=== PATIENT | female | born 1945 | race Caucasian/White ===

== ENCOUNTER 2018-07-25 09:56 | Day surgery (SDC) | payer OTHER ==
[2018-07-24 09:22] VITALS: BMI 21.9
[~2018-07-25 09:56] MED LIST: CYCLOPENTOLATE HCL 1% OPHTH SOLN 2 ML BOTTLE OD SCH; GENTAMICIN SULFATE 0.3% OPHTHALMIC (EYE DROPS) 5ML BOTTLE OD SCH; KETOROLAC TROMETHAMINE 0.5% EYE DROP 1 DROP DROPS OD SCH; PHENYLEPHRINE 2.5% OPHTH SOLN 15 ML BOTTLE OD SCH; TROPICAMIDE 1% OPHTH SOLN 15 ML BOTTLE OD SCH
[2018-07-25] MEDS ORDERED: PHENYLEPHRINE 2.5% OPHTH SOLN 15 ML BOTTLE ONE (10:19)
[2018-07-25] MEDS ORDERED: CYCLOPENTOLATE HCL 1% OPHTH SOLN 2 ML BOTTLE ONE (10:19)
[2018-07-25] MEDS ORDERED: GENTAMICIN SULFATE 0.3% OPHTHALMIC (EYE DROPS) 5ML BOTTLE ONE (10:19)
[2018-07-25] MEDS ORDERED: KETOROLAC TROMETHAMINE 0.5% EYE DROP 1 DROP DROPS ONE (10:19)
[2018-07-25] MEDS ORDERED: TROPICAMIDE 1% OPHTH SOLN 15 ML BOTTLE ONE (10:19)
[2018-07-25] MEDS: KETOROLAC TROMETHAMINE 0.5% EYE DROP 1 DROP DROPS OD SCH ×5 (10:30→10:50)
[2018-07-25] MEDS: TROPICAMIDE 1% OPHTH SOLN 15 ML BOTTLE OD SCH ×5 (10:30→10:50)
[2018-07-25] MEDS: CYCLOPENTOLATE HCL 1% OPHTH SOLN 2 ML BOTTLE OD SCH ×5 (10:30→10:50)
[2018-07-25] MEDS: GENTAMICIN SULFATE 0.3% OPHTHALMIC (EYE DROPS) 5ML BOTTLE OD SCH ×5 (10:30→10:50)
[2018-07-25] MEDS: PHENYLEPHRINE 2.5% OPHTH SOLN 15 ML BOTTLE OD SCH ×5 (10:30→10:50)
[2018-07-25] MEDS ORDERED: GENTAMICIN SULFATE 0.3% OPHTHALMIC (EYE DROPS) 5ML BOTTLE OD SCH (11:30)
[2018-07-25] MEDS ORDERED: POVIDONE-IODINE 5% OPHTHALMIC PREP 30 ML SOLUTION ONE (12:46)
[2018-07-25] MEDS ORDERED: ACETYLCHOLINE 1:100 INTRA-OCUL 20 MG/2 ML KIT ONE (12:46)
[2018-07-25] MEDS ORDERED: BSS (NA/CA/MG/K) BALANCED SALT SOLUTION OPHTH SOLN 15 ML BOTTLE ONE (12:46)
[2018-07-25] MEDS ORDERED: EPI-SHUGARCAINE (EPINEPHRINE 0.025% & LIDOCAINE-PF 0.75%) 4ML ONE ×2 (12:46→13:01)
[2018-07-25] MEDS ORDERED: MIDAZOLAM HCL 2 MG/2 ML SINGLE DOSE VIAL ONE (12:55)
[2018-07-25] MEDS ORDERED: ACETAMINOPHEN 325 MG TABLET (FP) PO PRN (14:06)
[2018-07-25 14:27] VITALS: TEMP 98.7
[2018-07-25 14:55] VITALS: BP 121/76; PULSE 73
--- NOTE | 2018-07-25 15:04 | OP ---
DATE OF OPERATION: 07/25/2018 AGE: [age] years old. SEX: Female. PREOPERATIVE DIAGNOSIS: Cataract, right eye. POSTOPERATIVE DIAGNOSIS: Cataract, right eye. PROCEDURE: Cataract extraction via phacoemulsification with insertion of posterior chamber lens implant, right eye. SURGEON: Doug Lund MD ART TEACHER: Jennifer Elise MD ANESTHESIA: Topical with sedation. ESTIMATED BLOOD LOSS: Less than 1 mL. COMPLICATIONS: None. SPECIMENS: None. DESCRIPTION OF PROCEDURE: The patient was identified in the holding area. After all risks, benefits, and alternatives were explained to the patient, informed consent was obtained. The right eye was marked with a marking pen. The patient then entered the operating room on an eye stretcher. After a formal timeout was performed, topical tetracaine eye drops were instilled onto the right eye. The right eye was then prepped and draped in the usual sterile fashion. An eyelid speculum was placed beneath the eyelids of the right eye. A superotemporal paracentesis incision was created using a 15-degree blade. Topical preservative-free epinephrine and preservative-free lidocaine were then injected into the anterior chamber. Viscoelastic was then injected into the anterior chamber. A 2.4-mm keratome blade was then used to make an inferotemporal incision. A 360-degree, continuous curvilinear capsulorrhexis was then created using bent cystotome and Utrata forceps. Hydrodissection was performed using balanced saline solution on a cannula. Phacoemulsification was introduced to disassemble and remove the nucleus in its entirety. Irrigation/aspiration was then used to remove any remaining cortical material from the eye. The capsular bag was reformed using viscoelastic. An Ronni model [id number] with a power of 17.5 diopters, serial number [id number] was inspected and found to be defect free and injected into the capsular bag. Irrigation/aspiration was then used to remove any remaining viscoelastic from the eye. The anterior chamber was reformed using balanced saline solution. Intracameral injections of Miochol and Miostat were then administered, and the pupil came down and was round. All wounds were hydrated with balanced saline solution and noted to be watertight. The anterior chamber was deep. The eye had an adequate pressure. The lens was perfectly centered in the capsular bag, and there was a red reflex present. Topical antibiotic eye drops and ointment were then administered to the right eye. The eyelid speculum was removed from the right eye. The right eye was shielded. The patient tolerated the procedure well, left the operating room in stable condition to follow up in the eye clinic tomorrow morning at 9:00. DOUG LUND M.D. [id number]
== END 2018-07-25 14:58 | disposition home or self-care (01) ==
LOC: FASU 09:56
PROVIDERS: ATTEND Ophthalmology
PROC: 08RJ3JZ Replacement of Right Lens with Synthetic Substitute, Percutaneous Approach (ICD-10-PCS; principal; 2018-07-25 13:35)
DX: H26.9 Unspecified cataract (principal)

== ENCOUNTER 2020-08-05 10:16 | Day surgery (SDC) | payer OTHER ==
--- OUTSIDE RECORDS SUMMARY | 2020-07-21 13:22 | XMS ---
:1945 Author Organization [facility] Care Team Providers Name Role Phone ROSS MCKEON Unavailable Unavailable KADY PACE MD Unavailable Unavailable Re-disclosure Warning The records that you are about to access may contain information from federally- assisted alcohol or drug abuse programs. If such information is present, then the following federally mandated warning applies: This information has been disclosed to you from records protected by federal confidentiality rules (42 CFR part 2). The federal rules prohibit you from making any further disclosure of this information unless further disclosure is expressly permitted by the written consent of the person to whom it pertains or as otherwise permitted by 42 CFR part 2. A general authorization for the release of medical or other information is NOT sufficient for this purpose. The Federal rules restrict any use of the information to criminally investigate or prosecute any alcohol or drug abuse patient.The records that you are about to access may contain highly sensitive health information, the redisclosure of which is protected by Article 27-F of the [facility] Public Health law. If you continue you may haveaccess to information: Regarding HIV / AIDS; Provided by facilities licensed or operated by the [facility] Office of Mental Health; or Provided by the [facility] Office for People With Developmental Disabilities. If such information is present, then the following [facility] mandated warning applies: This information has been disclosed to you from confidential records which are protected by state law. State law prohibits you from making any further disclosure of this information without the specific written consent of the person to whom it pertains, or as otherwise permitted by law. Any unauthorized further disclosure in violation of state law may result in a fine or mcfp sentence or both. A general authorization for the release of medical or other information is NOT sufficient authorization for further disclosure. Allergies and Adverse Reactions Type Description Substance Reaction Status Data Source(s ) seasonal seasonal seasonal Unknown Active eCW2 ([facility]) seasonal seasonal seasonal Unknown Active eCW2 ([facility]) seasonal seasonal seasonal Unknown Active eCW2 ([facility]) Drug allergy No Known Drug No Known Drug [facility] seasonal seasonal seasonal Unknown Active eCW2 ([facility]) seasonal seasonal seasonal Unknown Active eCW2 ([facility]) seasonal seasonal seasonal Unknown Active eCW2 ([facility]) seasonal seasonal seasonal Unknown Active eCW2 ([facility]) seasonal seasonal seasonal Unknown Active eCW2 ([facility]) seasonal seasonal seasonal Unknown Active eCW2 ([facility]) seasonal seasonal seasonal Unknown Active eCW2 ([facility]) seasonal seasonal seasonal Unknown Active eCW2 ([facility]) seasonal seasonal seasonal Unknown Active eCW2 ([facility]) seasonal seasonal seasonal Unknown Active eCW2 ([facility]) No Information No Information No Information eC W2 ([facility]) No Information No Information No Information eC W2 ([facility]) No Information No Information No Allergy eCW2 ( Open [facility]) Encounters Encounter Providers Location Date Indications Data Source(s ) [place]2 (Op en Door Door Door 0 [facility] 12:00:00 [place]) AM EDT [place] Open eCW2 (Op en Door Open Door Door 0 [facility] 12:00:00 [place] AM EST [place] Open eCW2 (Op en Door Open Door Door 9 [facility] 12:00:00 [place] AM ED[place] Open eCW2 (Op en Door Open Door Door 9 [facility] 12:00:00 [place]) AM EDT [place] Open eCW2 (Op en Door Open Door Door [address] [place] [address] 12:00:00 [place]) AM EDT [place] Open eCW2 (Op en Door [facility] 12:00:[facility] [place] AM ED[place] Open eCW2 (Op en Door Open [facility] 12:00:00 [place]) AM EDT [place] Open eCW2 (Op en Door Open Door [facility] 12:00:00 [place]) AM EDT [place] Open eCW2 (Op en Door Open [facility] 12:00:00 [place]) AM EDT [place] Open eCW2 (Op en Door Open Door [facility] 12:00:00 [place]) AM EDT [place] Open eCW2 (Op en Door Open Door [facility] 12:00:00 [place]) AM EDT [place] Open eCW2 (Op en Door Open Door [facility] 12:00:00 [place]) AM EDT [place] Open eCW2 (Op en Door Open Door [facility] 12:00:00 [place]) AM EDT [place] Open eCW2 (Op en Door Open Door [facility] 12:00:00 [place]) AM EDT [place] Open eCW2 (Op en Door Open [facility] 12:00:00 [place]) AM EDT [place] Open eCW2 (Op en Door Open Door [facility] 12:00:00 [place]) AM EDT Outpatient Attender: LEFT EYE VISION [facility] er MIKE, 9 [facility] RAMANDEEPAttend 07:30:00 Care Mauro oration er: KADY PACE PM EST MDAdmitter: KADY PACE MD LEFT EYE VISION FOG Emergency Attender: KATELYNN 12/22/2018 02:53:00 LEFT EYE [facility] KADY SHAW PM EST [facility] LEFT EYE VISION FOG [place] Open Door 12/15/2018 12:00:00 AM eCW2 (Open Door Door [facility]) [place] Open Door 12/01/2018 12:00:00 AM eCW2 (Open Door Door [facility]) [place] Open Door 11/10/2018 12:00:00 AM eCW2 (Open Door Door [facility]) [place] Open Door 11/03/2018 12:00:00 AM eCW2 (Open Door Door [facility]) [place] Open Door 10/27/2018 12:00:00 AM eCW2 (Open Door Door [facility]) [place] Open Door 10/06/2018 12:00:00 AM eCW2 (Open Door Door [facility]) [place] Open Door 09/22/2018 12:00:00 AM eCW2 (Open Door Door [facility]) [place] [facility] 06/01/2018 12:00:00 AM eCW2 (Open Door [facility]) [place] Open Door 03/14/2018 12:00:00 AM eCW2 (Open Door Door [facility]) [place] Open Door 02/16/2018 12:00:00 AM eCW2 (Open Door Door [facility]) [place] [facility] [place] 02/06/2018 12:00:00 AM eCW2 (Open Door [facility]) [place] [facility] [place] 01/24/2018 12:00:00 AM eCW2 (Open Door [facility]) [place] [facility] [place] 06/21/2017 12:00:00 AM eCW2 (Open Door [facility]) [place] [facility] 12/07/2016 12:00:00 AM eCW2 (Open Door [facility]) [place] [facility] 11/03/2016 12:00:00 AM eCW2 (Open Door [facility]) [place] [facility] 04/19/2016 12:00:00 AM eCW2 (Open Door [facility]) [place] Open Door 06/03/2015 12:00:00 AM eCW2 (Open Door Door [facility]) [place] Open Door 10/16/2014 12:00:00 AM eCW2 (Open Door [facility]) [place] [facility] 09/03/2014 12:00:00 AM eCW2 (Open Door [facility]) [place] [facility] 08/19/2014 12:00:00 AM eCW2 (Open Door [facility]) [place] Open [place] Open [facility] 08/01/2014 12:00:00 AM eCW2 (Open Door [facility]) [place] Open [facility] 08/01/2014 12:00:00 AM eCW2 (Open Door [facility]) [place] [facility] 06/08/2014 12:00:00 AM eCW2 (Open Door [facility]) [place] Open Door 05/29/2014 12:00:00 A M eCW2 (Open Door Door [facility]) [place] Open [facility] 04/24/2014 12:00:00 AM eCW2 (Open Door [facility]) [place] Open [facility] 03/29/2014 12:00:00 AM eCW2 (Open Door [facility]) [place] [facility] 03/01/2014 12:00:00 AM eCW2 (Open Door [facility]) [place] Open [place] [facility] 02/08/2014 12:00:00 AM eCW2 (Open Door [facility]) [place] Open [place] [facility] 01/19/2014 12:00:00 AM eCW2 (Open Door [facility]) Immunizations Vaccine Date Status Description Data Source(s) No Known Immunizations completed eCW2 ([facility]) No Known Immunizations completed eCW2 ([facility]) No Known Immunizations completed eCW2 ([facility]) No Known Immunizations completed eCW2 ([facility]) No Known Immunizations completed eCW2 ([facility]) No Known Immunizations completed eCW2 ([facility]) No Known Immunizations completed eCW2 ([facility]) No Known Immunizations completed eCW2 ([facility]) No Known Immunizations completed eCW2 (Open Door [facility]) No Known Immunizations completed eCW2 (Open Door [facility]) No Known Immunizations completed eCW2 (Open Door [facility]) No Known Immunizations completed eCW2 (Open Door [facility]) No Known Immunizations completed eCW2 (Open Door [facility]) No Known Immunizations completed eCW2 (Open Door [facility]) No Known Immunizations completed eCW2 (Open Door [facility]) No Known Immunizations completed eCW2 (Open Door [facility]) Medications Medication Brand Start Product Dose Route Administrative Pharmacy [facility] Indications Reaction Description Data Name Date Form Instructions Instructions Source(s) B Complex UNK active eCW2 (Op en 50 Door [facility]) aspirin 81 UNK active 1 tab(s) eCW 2 (Open mg Door [facility]) Aspirin 81 aspiri suspend 1 tab(s) eCW2 (Open MG [place] n 81 ed Door Tablet mg [facility] aspirin 81 Medical mg [place]) omega-3 UNK suspend 2 cap(s) eCW2 (Open polyunsatur ed Door ated fatty Family acids 500 Medical mg [place]) B Complex UNK active eCW2 (Op en 50 Door [facility]) omega-3 UNK active 2 cap(s) eCW2 ( Open polyunsatur Door ated fatty Family acids 500 Medical mg [place]) Omeprazole UNK active 1 cap(s) eCW 2 (Open Suspension Door 40 mg [facility]) B Complex UNK suspend eCW2 (O pen 50 ed Door [facility]) omega-3 UNK active 2 cap(s) eCW2 ( Open polyunsatur Door ated fatty Family acids 500 Medical mg [place]) Omeprazole UNK active 1 cap(s) eCW 2 (Open Suspension Door 40 mg [facility]) omega-3 UNK active 2 cap(s) eCW2 ( Open polyunsatur Door ated fatty Family acids 500 Medical mg [place]) omega-3 UNK active 2 cap(s) eCW2 ( Open polyunsatur Door ated fatty Family acids 500 Medical mg Center) Unknown complet eCW2 (Ope n Medications ed Door [facility]) Aspirin 81 aspiri active 1 tab(s) e CW2 (Open MG Chewable n 81 Door Tablet mg [facility] aspirin 81 Medical mg [place]) Omeprazole UNK active 1 cap(s) eCW 2 (Open Suspension Door 40 mg [facility]) Omeprazole UNK active 1 cap(s) eCW 2 (Open Suspension Door 40 mg [facility]) B Complex UNK active eCW2 (Op en 50 Door [facility]) Omeprazole UNK active 1 cap(s) eCW 2 (Open Suspension Door 40 mg [facility]) Aspirin 81 aspiri active 1 tab(s) e CW2 (Open MG Chewable n 81 Door Tablet mg Family aspirin 81 Medical mg Center) B Complex UNK active eCW2 (Op en 50 Door [facility]) Aspirin 81 aspiri active 1 tab(s) e CW2 (Open MG Chewable n 81 Door Tablet mg Family aspirin 81 Medical mg Center) omega-3 UNK active 2 cap(s) eCW2 ( Open polyunsatur Door ated fatty Family acids 500 Medical mg Center) omega-3 UNK suspend 2 cap(s) eCW2 (Open polyunsatur ed Door ated fatty Family acids 500 Medical mg Center) Unknown complet eCW2 (Ope n Medications ed Door [facility]) omega-3 UNK active 2 cap(s) eCW2 ( Open polyunsatur Door ated fatty Family acids 500 Medical mg Center) omega-3 UNK active 2 cap(s) eCW2 ( Open polyunsatur Door ated fatty Family acids 500 Medical mg Center) Aspirin 81 aspiri suspend 1 tab(s) eCW2 (Open MG Chewable n 81 ed Door Tablet mg [facility] aspirin 81 Medical mg Center) Aspirin 81 aspiri active 1 tab(s) e CW2 (Open MG Chewable n 81 Door Tablet mg [facility] aspirin 81 Medical mg Center) B Complex UNK suspend eCW2 (O pen 50 ed Door [facility]) B Complex UNK active eCW2 (Op en 50 Door [facility]) Omeprazole UNK active 1 cap(s) eCW 2 (Open Suspension Door 40 mg [facility]) Omeprazole UNK active 1 cap(s) eCW 2 (Open Suspension Door 40 mg [facility]) B Complex UNK suspend eCW2 (O pen 50 ed Door [facility]) B Complex UNK active eCW2 (Op en 50 Door [facility]) Aspirin 81 aspiri suspend 1 tab(s) eCW2 (Open MG Chewable n 81 ed Door Tablet mg Family aspirin 81 Medical mg [place]) omega-3 UNK active 2 cap(s) eCW2 ( Open polyunsatur Door ated fatty Family acids 500 Medical mg [place]) B Complex UNK active eCW2 (Op en 50 Door [facility]) Aspirin 81 aspiri active 1 tab(s) e CW2 (Open MG Chewable n 81 Door Tablet mg [facility] aspirin 81 Medical mg [place]) B Complex UNK suspend eCW2 (O pen 50 ed Door [facility]) omega-3 UNK suspend 2 cap(s) eCW2 (Open polyunsatur ed Door ated fatty Family acids 500 Medical mg [place]) Omeprazole UNK active 1 cap(s) eCW 2 (Open Suspension Door 40 mg [facility]) B Complex UNK active eCW2 (Op en 50 Door [facility]) Aspirin 81 aspiri active 1 tab(s) e CW2 (Open MG Chewable n 81 Door Tablet mg [facility] aspirin 81 Medical mg [place]) B Complex UNK active eCW2 (Op en 50 Door [facility]) Omeprazole UNK active 1 cap(s) eCW 2 (Open Suspension Door 40 mg [facility]) Aspirin 81 aspiri active 1 tab(s) e CW2 (Open MG Chewable n 81 Door Tablet mg [facility] aspirin 81 Medical mg [place]) omega-3 UNK suspend 2 cap(s) eCW2 (Open polyunsatur ed Door ated fatty Family acids 500 Medical mg [place]) Aspirin 81 aspiri active 1 tab(s) e CW2 (Open MG Chewable n 81 Door Tablet mg [facility] aspirin 81 Medical mg [place]) No Known complet eCW2 (Op en Medications ed Door [facility]) Omeprazole UNK active 1 cap(s) eCW 2 (Open Suspension Door 40 mg [facility]) Omeprazole UNK active 1 cap(s) eCW 2 (Open Suspension Door 40 mg [facility]) Omeprazole UNK active 1 cap(s) eCW 2 (Open Suspension Door 40 mg [facility]) Aspirin 81 aspiri suspend 1 tab(s) eCW2 (Open MG Chewable n 81 ed Door Tablet mg [facility] aspirin 81 Medical mg [place]) omega-3 UNK active 2 cap(s) eCW2 ( Open polyunsatur Door ated fatty Family acids 500 Medical mg [place]) Insurance Providers Payer name Policy type Policy ID Covered Covered constitution party's Policy P hansa / Coverage constitution party ID relationship to [facility] type [facility] [id number] S [id number] [employer] Essential Plan 3 [employer] [id number] S [id number] Medicare Essential Passport HMO Problems, Conditions, and Diagnoses Code Display Name Description Problem Type Effective Data Sour ce(s) Dates E78.2 [id number] Mixed Problem 11/03/2016 eCW2 (Open Doo [facility] hyperlipidemia 12:00:00 AM Family Me dical EST Center) E78.2 Mixed Mixed Problem 11/03/2016 eCW2 (Open Doo [facility] hyperlipidemia hyperlipidemia 12:00:00 AM Famil y Medical EST Center) E78.2 Mixed Mixed Problem 11/03/2016 eCW2 (Open Doo r hyperlipidemia hyperlipidemia 12:00:00 AM Famil y Medical EST Center) 272.4 Hyperlipidemia Hyperlipidemia Problem 01/19/2014 eCW2 ( Open Door 12:00:00 AM Family Medica l EDT Center) 272.4 Hyperlipidemia Hyperlipidemia Problem 01/19/2014 eCW2 ( Open [facility] 12:00:00 AM Family Medica l EDT Center) 272.4 Hyperlipidemia Hyperlipidemia Problem 01/19/2014 eCW2 ( Open [facility] 12:00:00 AM Family Medica l EDT Center) E78.5 Hyperlipidemia, Hyperlipidemia, Diagnosis 12/26/2018 HERB GANN[place] ([place] unspecified 06:02:30 PM [facility]) E78.5 Hyperlipidemia, HYPERLIPIDEMIA, Diagnosis 12/22/2018 [place] unspecified UNSPECIFIED 07:30:00 PM [facility] Personal Capital H26.9 Unspecified UNSPECIFIED Diagnosis 12/22/2018 [place] cataract CATARACT 07:30:00 PM [facility] Personal Capital 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 12/22/2018 [facility] stenosis of left STENOSIS OF LEFT 07:30:00 PM [employer] carotid artery CAROTID ARTERY [facility] [employer] E78.00 Pure PURE Diagnosis 12/22/2018 [place] hypercholesterolem HYPERCHOLESTEROLEM 07:30:00 PM [facility] ia, unspecified IA, UNSPECIFIED [employer] 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, right eye ATROPHY, RIGHT EYE 07:30:00 PM [facility] [employer] H53.8 Other visual OTHER VISUAL Diagnosis 12/22/2018 [place] disturbances DISTURBANCES 07:30:00 PM [facility] Surgeries/Procedures Procedure Description Date Indications Data Source(s) Dental Office Visit - 03/12/2019 eCW2 ( Open [facility] 12:00:00 AM [facility]) Completed-Labial Veneer 03/12/2019 eCW2 (Open Door - [place] 12:00:00 AM [facility]) Completed-Labial Veneer 03/12/2019 eCW2 (Open Door - [place] 12:00:00 AM [facility]) Initial-Labial Veneer - 02/16/2019 eCW2 (Open Door [place] 12:00:00 AM [facility]) Initial-Labial Veneer - 02/16/2019 eCW2 (Open Door [place] 12:00:00 AM [facility]) AMALGAM-1 SURFACE 12/15/2018 eCW2 (Open Door PRIMARY/PERMANENT 12:00:00 AM [facility]) Dental Office Visit - 12/15/2018 eCW2 ( Open Door Routine 12:00:00 AM [facility]) RESIN-2 SURFACE 12/01/2018 eCW2 (Open D oor ANTERIOR 12:00:00 AM [facility]) PRDNTL SCAL&ROOT PLAN 11/10/2018 eCW2 ( Open Door 4></div>TEETH-QUAD 12:00:00 AM [facility]) Dental Office Visit - 11/03/2018 eCW2 ( Open Door Routine 12:00:00 AM [facility]) PRDNTL SCAL&ROOT PLAN 11/03/2018 eCW2 ( Open Door 4></div>TEETH-QUAD 12:00:00 AM [facility]) PRDNTL SCAL&ROOT PLAN 10/06/2018 eCW2 ( Open Door 4></div>TEETH-QUAD 12:00:00 AM [facility]) PERIODIC ORAL 09/22/2018 eCW2 (Open Doo r EXAMINATION 12:00:00 AM [facility]) ADDITIONAL PA X-RAY 09/22/2018 eCW2 (Op en Door 12:00:00 AM [facility]) BITEWINGS - FOUR FILMS 09/22/2018 eCW2 (Open Door 12:00:00 AM [facility]) PROPHYLAXIS - ADULT 09/22/2018 eCW2 (Op en Door 12:00:00 AM [facility]) NUTRITION COUNSELING 09/22/2018 eCW2 (O pen Door 12:00:00 AM [facility]) ORAL HYGIENE 09/22/2018 eCW2 (Open Door INSTRUCTION 12:00:00 AM [facility]) Dental Office Visit - 09/22/2018 eCW2 ( Open Door Routine 12:00:00 AM [facility]) Caries Risk Assessment 09/22/2018 eCW2 (Open Door - Moderate Risk 12:00:00 AM [facility]) Caries on Recall 09/22/2018 eCW2 (Open Door 12:00:00 AM [facility]) protective episcopal 03/14/2018 eCW2 (Open Door 12:00:00 AM [facility]) RESIN COMPOS - 1 03/14/2018 eCW2 (Open [facility] SURFACE POSTERIOR 12:00:00 [facility] [place]) RESIN-2 SURFACE 03/14/2018 eCW2 (Open D oor ANTERIOR 12:00:00 AM [facility]) ORAL HYGIENE 02/16/2018 eCW2 (Open Door INSTRUCTION 12:00:00 AM [facility]) Dental Office Visit - 02/16/2018 eCW2 ( Open Door Routine 12:00:00 AM [facility]) PROPHYLAXIS - ADULT 02/16/2018 eCW2 (Op en Door 12:00:00 AM [facility]) INTRAORAL COMPLETE 02/16/2018 eCW2 (Ope n Door SERIES BWX 12:00:00 AM [facility]) BITEWINGS - TWO FILMS 01/24/2018 eCW2 ( Open [facility] 12:00:00 AM [facility] [place]) Dental Office Visit - 01/24/2018 eCW2 ( Open Door Routine 12:00:00 AM [facility] [place]) ADDITIONAL PA X-RAY 01/24/2018 eCW2 (Op en Door 12:00:00 AM [facility]) ADDITIONAL PA X-RAY 01/24/2018 eCW2 (Op en Door 12:00:00 AM [facility]) LIMITED ORAL EVALUATION 01/24/2018 eCW2 (Open Door - PROBLEM FOCUS 12:00:00 AM Family Medic al EDT Center) No Known procedures No Known procedures e CW2 (Open Door [facility]) No Known procedures No Known procedures e CW2 (Open Door [facility]) No Known procedures No Known procedures e CW2 (Open Door [facility]) Results ID Date Data Source [id number] 12/23/2018 06:26:43 PM EST [facility] [id number] Corporation Name Value Range Interpretation Description Data Source(s ) Supporting Code Document(s ) Antibody NEG <td> [place] Screen 12/22/2018 [facility] 17:04</td><td> Care [employer] Screen </td><td> NEG
</td> ABO-Rh Type O POS <td> [place] 12/22/2018 [facility] 17:04</td><td> Care ABO-Rh Type Corporation </td><td> O POS
</td> Specimen 12/26/19 <td> [place] expiration 19 23:59 12/22/2018 [facility] date of Blood 17:04</td><td> Care [employer] Expiration Date </td><td> 12/25/2018 23:59
</td> Specimen 12/26/19 <td> [place] expiration 19 23:59 12/22/2018 [facility] date of Blood 17:04</td><td> Care [employer] Expiration Date </td><td> 12/25/2018 23:59
</td> Antibody NEG <td> [place] Screen 12/22/2018 [facility] 17:04</td><td> Care [employer] Screen </td><td> NEG
</td> ABO-Rh Type O POS <td> [place] 12/22/2018 [facility] 17:04</td><td> Care [employer] </td><td> O POS
</td> ABO-Rh Type O POS <td> [place] 12/22/2018 [facility] 17:04</td><td> Care [employer] </td><td> O POS
</td> Specimen 12/26/19 <td> [place] expiration 19 23:59 12/22/2018 [facility] date of Blood 17:04</td><td> Care [employer] Expiration Date </td><td> 12/25/2018 23:59
</td> Antibody NEG <td> [place] Screen 12/22/2018 [facility] 17:04</td><td> Care [employer] Screen </td><td> NEG
</td> ID Date Data Source [id number] 12/23/2018 06:26:43 PM EST [facility] [id number] Corporation Name Value Range Interpretation Description Data Sup porting Code Source(s) Document(s ) Brain (PACSIMAGE <td> 12/22/2018 [place] [facility] ) 19:33</td><td> [facility] Head/Nc Final Result Brain MRA Health Care ck C+/ Name: JR Head/Neck C+/ Corporat ion MRI MERA I MRN: [id number] Sex: F </td><td><paragr : 1945 aph Location: F styleCode="Itali Admitting cs">(PACSIMAGE Physician: KADY PACE Requesting Physician: CHINO )</paragraph><br ZHANNA />
Final Exam: MRI BRAIN Result MRA HEAD/NECK

C+/C- 12/22/2018 Name: JR, 23:28 MERA I CLINICAL
INDICATION: Blurry vision, Sex: F carotid stenosis
: COMPARISON: 1945 None. Location: F TECHNIQUE:
MRI HEAD: Admitting Multiplanar and Physician: KADY phipps imaging KATELYNN of the head
without and Requesting with IV Physician: gadolinium. CHINO CHAO MRA HEAD: 3D [id number]

head MR angiogram Exam: MRI BRAIN without IV MRA HEAD/NECK gadolinium. C+/C- 12/22/2018 [place] 23:28 gadolinium bolus

MR angiogram of CLINICAL the head. MIP INDICATION: reformats.. Blurry vision, MRA NECK: 2D and carotid stenosis 3D arlu-oy-[id number] neck MRA without

IV gadolinium. COMPARISON: Coronal None. gadolinium bolus

MR angiogram of TECHNIQUE: the neck. MIP

reformats.. MRI HEAD: FINDINGS: Multiplanar and MRI HEAD: There multiecho is a mild amount imaging of the of scattered head without ill-defined
T2/FLAIR signal and with IV hyperintense foci gadolinium. in the cerebral

white matter and MRA HEAD: 3D in the alyce, [id number] which is likely head MR secondary to angiogram chronic small without IV vessel ischemic gadolinium. disease. No acute
ischemic infarct. Coronal No intracranial gadolinium bolus mass, mass MR angiogram of effect or midline the head. MIP shift. No reformats.. hydrocephalus. No

pathologic MRA NECK: 2D enhancement.. and 3D MRA HEAD: No [id number] intracranial neck MRA without aneurysms. No IV gadolinium. high-flow
vascular Coronal malformations. gadolinium bolus No intracranial MR angiogram of arterial stenoses the neck. MIP or occlusions. reformats.. origin of the left

posterior FINDINGS: cerebral artery. MRA NECK: The

origins of the MRI HEAD: There great vessels are is a mild amount patent. The of scattered common carotid ill-defined artery, internal T2/FLAIR carotid artery
and external signal carotid artery hyperintense are patent foci in the bilaterally. The cerebral white vertebral matter and in arteries are
patent the alyce, which bilaterally. No is likely hemodynamically secondary to significant chronic small carotid stenosis vessel ischemic using NASCET
criteria. Normal disease. No flow direction. acute ischemic IMPRESSION: infarct. No MRI HEAD: intracranial 1. Mild chronic mass, mass small vessel
ischemic disease effect or in the cerebral midline shift. white matter and No in the alyce. 2. hydrocephalus. No acute infarct, No pathologic intracranial mass enhancement.. or pathologic enhancement..

MRA HEAD: No MRA HEAD: No evidence of intracranial severe stenosis aneurysms. No or occlusion of high-flow the proximal vascular vessels [place] malformations. of [place].
MRA NECK: The No carotid and intracranial vertebral arterial arteries are stenoses or patent in the occlusions. neck. No origin evidence of
hemodynamically of the left significant posterior carotid stenosis cerebral artery. utilizing NASCET criteria.

MRA NECK: The Resident origins of the Radiologist: great vessels Attending are patent. The Radiologist: common Ten Alvarez MD
Finalizing carotid artery, Radiologist: internal carotid Ten Alvarez MD artery and Transcribed external carotid Date: 12/23/2018
07:15 Finalized artery are Date: 12/23/2018 patent 07:31 bilaterally. The vertebral arteries are patent
bilaterally. No hemodynamically significant carotid stenosis
using NASCET criteria. Normal flow direction.

IMPRESSION:

MRI HEAD:
1. Mild chronic small vessel ischemic disease in the cerebral
white matter and in the alyce.
2. No acute infarct, intracranial mass or pathologic enhancement..

MRA HEAD:
No evidence of severe stenosis or occlusion of the proximal vessels
[place] of [place].

MRA NECK:
The carotid and vertebral arteries are patent in the neck. No
evidence of hemodynamically significant carotid stenosis utilizing
NASCET criteria.

< br/> Resident Radiologist:
Attending Radiologist: Ten Alvarez MD
Finalizing Radiologist: Ten Alvarez MD
Transcribed Date: 12/23/2018 07:15
Finalized Date: 12/23/2018 07:31

</td> Brain (PACSIMAGE <td> 12/22/2018 [place] MRA ) 19:33</td><td> [place] Head/Ne Final Result Brain MRA Health Care ck C+/ Name: JR, Head/Neck C+/ Corporat ion MRI MERA I MRN: MRI [id number] Sex: F </td><td><paragr : 1945 aph Location: F styleCode="Itali Admitting cs">(PACSIMAGE Physician: KADY PACE Requesting Physician: CHINO )</paragraph><br ZHANNA />
Final Exam: MRI BRAIN Result MRA HEAD/NECK

C+/C- 12/22/2018 Name: JR, 23:28 MERA I CLINICAL
INDICATION: Blurry vision, Sex: F carotid stenosis
: COMPARISON: 1945 None. Location: F TECHNIQUE:
MRI HEAD: Admitting Multiplanar and Physician: KADY phipps imaging KATELYNN of the head
without and Requesting with IV Physician: mavis. CHINO CHAO MRA HEAD: 3D [id number]

head MR angiogram Exam: MRI BRAIN without IV MRA HEAD/NECK gadolinium. C+/C- 12/22/2018 [place] 23:28 gadolinium bolus

MR angiogram of CLINICAL the head. MIP INDICATION: reformats.. Blurry vision, MRA NECK: 2D and carotid stenosis 3D [id number]-sy-[id number] neck MRA without

IV gadolinium. COMPARISON: Coronal None. gadolinium bolus

MR angiogram of TECHNIQUE: the neck. MIP

reformats.. MRI HEAD: FINDINGS: Multiplanar and MRI HEAD: There multiecho is a mild amount imaging of the of scattered head without ill-defined
T2/FLAIR signal and with IV hyperintense foci gadolinium. in the cerebral

white matter and MRA HEAD: 3D in the alyce, yfwb-je-aoyzee which is likely head MR secondary to angiogram chronic small without IV vessel ischemic gadolinium. disease. No acute
ischemic infarct. Coronal No intracranial gadolinium bolus mass, mass MR angiogram of effect or midline the head. MIP shift. No reformats.. hydrocephalus. No

pathologic MRA NECK: 2D enhancement.. and 3D MRA HEAD: No kogu-mg-gkheap intracranial neck MRA without aneurysms. No IV gadolinium. high-flow
vascular Coronal malformations. gadolinium bolus No intracranial MR angiogram of arterial stenoses the neck. MIP or occlusions. reformats.. origin of the left

posterior FINDINGS: cerebral artery. MRA NECK: The

origins of the MRI HEAD: There great vessels are is a mild amount patent. The of scattered common carotid ill-defined artery, internal T2/FLAIR carotid artery
and external signal carotid artery hyperintense are patent foci in the bilaterally. The cerebral white vertebral matter and in arteries are
patent the alyce, which bilaterally. No is likely hemodynamically secondary to significant chronic small carotid stenosis vessel ischemic using NASCET
criteria. Normal disease. No flow direction. acute ischemic IMPRESSION: infarct. No MRI HEAD: intracranial 1. Mild chronic mass, mass small vessel
ischemic disease effect or in the cerebral midline shift. white matter and No in the alyce. 2. hydrocephalus. No acute infarct, No pathologic intracranial mass enhancement.. or pathologic enhancement..

MRA HEAD: No MRA HEAD: No evidence of intracranial severe stenosis aneurysms. No or occlusion of high-flow the proximal vascular vessels [place] malformations. of [place].
MRA NECK: The No carotid and intracranial vertebral arterial arteries are stenoses or patent in the occlusions. neck. No origin evidence of
hemodynamically of the left significant posterior carotid stenosis cerebral artery. utilizing NASCET criteria.

MRA NECK: The Resident origins of the Radiologist: great vessels Attending are patent. The Radiologist: toni Alvarez MD
Finalizing carotid artery, Radiologist: internal carotid Ten Alvarez MD artery and Transcribed external carotid Date: 12/23/2018
07:15 Finalized artery are Date: 12/23/2018 patent 07:31 bilaterally. The vertebral arteries are patent
bilaterally. No hemodynamically significant carotid stenosis
using NASCET criteria. Normal flow direction.

IMPRESSION:

MRI HEAD:
1. Mild chronic small vessel ischemic disease in the cerebral
white matter and in the alyce.
2. No acute infarct, intracranial mass or pathologic enhancement..

MRA HEAD:
No evidence of severe stenosis or occlusion of the proximal vessels
[place] of [place].

MRA NECK:
The carotid and vertebral arteries are patent in the neck. No
evidence of hemodynamically significant carotid stenosis utilizing
NASCET criteria.

< br/> Resident Radiologist:
Attending Radiologist: Ten Alvarez MD
Finalizing Radiologist: Ten Alvarez MD
Transcribed Date: 12/23/2018 07:15
Finalized Date: 12/23/2018 07:31

</td> Brain (PACSIMAGE <td> 12/22/2018 [place] [facility] ) 19:33</td><td> [facility] Head/Nc Final Result Brain MRA Health Care ck C+/ Name: JR Head/Neck C+/ Corporat ion MRI MERA I MRN: MRI [id number] Sex: F </td><td><paragr : 1945 aph Location: F styleCode="Itali Admitting cs">(PACSIMAGE Physician: KADY PACE Requesting Physician: CHINO )</paragraph><br ZHANNA />
Final Exam: MRI BRAIN Result MRA HEAD/NECK

C+/C- 12/22/2018 Name: JR, 23:28 MERA I CLINICAL
INDICATION: Blurry vision, Sex: F carotid stenosis
: COMPARISON: 1945 None. Location: F TECHNIQUE:
MRI HEAD: Admitting Multiplanar and Physician: KADY phipps imaging KATELYNN of the head
without and Requesting with IV Physician: gadolinium. CHINO CHAO MRA HEAD: 3D [id number]

head MR angiogram Exam: MRI BRAIN without IV MRA HEAD/NECK gadolinium. C+/C- 12/22/2018 [place] 23:28 gadolinium bolus

MR angiogram of CLINICAL the head. MIP INDICATION: reformats.. Blurry vision, MRA NECK: 2D and carotid stenosis 3D xtlz-sj-niltis neck MRA without

IV gadolinium. COMPARISON: Coronal None. gadolinium bolus

MR angiogram of TECHNIQUE: the neck. MIP

reformats.. MRI HEAD: FINDINGS: Multiplanar and MRI HEAD: There multiecho is a mild amount imaging of the of scattered head without ill-defined
T2/FLAIR signal and with IV hyperintense foci gadolinium. in the cerebral

white matter and MRA HEAD: 3D in the alyce, [id number]-[id number] which is likely head MR secondary to angiogram chronic small without IV vessel ischemic gadolinium. disease. No acute
ischemic infarct. Coronal No intracranial gadolinium bolus mass, mass MR angiogram of effect or midline the head. MIP shift. No reformats.. hydrocephalus. No

pathologic MRA NECK: 2D enhancement.. and 3D MRA HEAD: No cnac-jl-[id number] intracranial neck MRA without aneurysms. No IV gadolinium. high-flow
vascular Coronal malformations. gadolinium bolus No intracranial MR angiogram of arterial stenoses the neck. MIP or occlusions. reformats.. origin of the left

posterior FINDINGS: cerebral artery. MRA NECK: The

origins of the MRI HEAD: There great vessels are is a mild amount patent. The of scattered common carotid ill-defined artery, internal T2/FLAIR carotid artery
and external signal carotid artery hyperintense are patent foci in the bilaterally. The cerebral white vertebral matter and in arteries are
patent the alyce, which bilaterally. No is likely hemodynamically secondary to significant chronic small carotid stenosis vessel ischemic using NASCET
criteria. Normal disease. No flow direction. acute ischemic IMPRESSION: infarct. No MRI HEAD: intracranial 1. Mild chronic mass, mass small vessel
ischemic disease effect or in the cerebral midline shift. white matter and No in the alyce. 2. hydrocephalus. No acute infarct, No pathologic intracranial mass enhancement.. or pathologic enhancement..

MRA HEAD: No MRA HEAD: No evidence of intracranial severe stenosis aneurysms. No or occlusion of high-flow the proximal vascular vessels [place] malformations. of [place].
MRA NECK: The No carotid and intracranial vertebral arterial arteries are stenoses or patent in the occlusions. neck. No origin evidence of
hemodynamically of the left significant posterior carotid stenosis cerebral artery. utilizing NASCET criteria.

MRA NECK: The Resident origins of the Radiologist: great vessels Attending are patent. The Radiologist: toni Alvarez MD
Finalizing carotid artery, Radiologist: internal carotid Ten Alvarez MD artery and Transcribed external carotid Date: 12/23/2018
07:15 Finalized artery are Date: 12/23/2018 patent 07:31 bilaterally. The vertebral arteries are patent
bilaterally. No hemodynamically significant carotid stenosis
using NASCET criteria. Normal flow direction.

IMPRESSION:

MRI HEAD:
1. Mild chronic small vessel ischemic disease in the cerebral
white matter and in the alyce.
2. No acute infarct, intracranial mass or pathologic enhancement..

MRA HEAD:
No evidence of severe stenosis or occlusion of the proximal vessels
[place] of [place].

MRA NECK:
The carotid and vertebral arteries are patent in the neck. No
evidence of hemodynamically significant carotid stenosis utilizing
NASCET criteria.

< br/> Resident Radiologist:
Attending Radiologist: Ten Alvarez MD
Finalizing Radiologist: Ten Alvarez MD
Transcribed Date: 12/23/2018 07:15
Finalized Date: 12/23/2018 07:31

</td> ID Date Data Source [id number]- 12/23/2018 06:26:43 PM [facility] [id number] Corporation Name Value Range Interpretation Description Data Sup porting Code Source(s) Document(s ) Leukocytes 5.9 k/mm3 4.8-10 <td> 12/23/2018 [place] [#/volume] in .8 07:47</td><td> [facility] Blood by k/mm3 WBC </td><td> Health Care Automated count [employer] 5.9
(4.8-10.8) k/mm3 </td> Hemoglobin 13.1 g/dL 12.0-1 <td> 12/23/2018 [place] [Mass/volume] 6.0 07:47</td><td> [facility] in Blood g/dL HGB </td><td> [employer] [facility] [employer] 13.1
(12.0-16.0) g/dL </td> Erythrocyte 100.0 fL 81.0-9 <td> 12/23/2018 [place] mean 9.0 fL 07:47</td><td> [facility] corpuscular [facility] Care volume [Entitic </td><td><artie Corporat ion volume] by raph Automated count styleCode="Bold "> 100.0 H </paragraph>
(81.0-99.0) fL </td> Erythrocytes 4.11 m/mm3 3.90-5 <td> 12/23/2018 [facility] r [#/volume] in .20 07:47</td><td> [facility] Blood m/mm3 RBC </td><td> Health Care [employer] 4.11
(3.90-5.20) m/mm3 </td> Hematocrit 41.1 % 37.0-4 <td> 12/23/2018 [place] [Volume 7.0 % 07:47</td><td> County Fraction] of HCT </td><td> Health Care Blood by [employer] Automated count 41.1
(37.0-47.0) % </td> Erythrocyte 12.0 % 11.5-1 <td> 12/23/2018 [place] distribution 4.5 % 07:47</td><td> County width [Entitic RDW </td><td> Health Car e volume] by [employer] Automated count 12.0
(11.5-14.5) % </td> Erythrocyte 31.9 pg 27.0-3 <td> 12/23/2018 [place] mean 1.5 pg 07:47</td><td> [facility] corpuscular [facility] Health Care hemoglobin </td><td><[employer] [Entitic mass] raph by Automated styleCode="Bold count "> 31.9 H </paragraph>
(27.0-31.5) pg </td> Erythrocyte 31.9 % 32.0-3 <td> 12/23/2018 [place] mean 6.0 % 07:47</td><td> [facility] corpuscucor [facility] Health Care hemoglobin </td><td><[employer] concentration raph [Mass/volume] styleCode="Bold in Blood from "> [employer] by 31.9 Automated count L </paragraph>
(32.0-36.0) % </td> Platelet mean 12.9 fL 9.8-12 <td> 12/23/2018 [facility] r volume [Entitic .8 fL 07:47</td><td> County volume] in [facility] Health Care Blood by </td><td><[employer] Automated count raph styleCode="Bold "> 12.9 H </paragraph>
(9.8-12.8) fL </td> Platelets 172 k/mm3 160-41 <td> 12/23/2018 [place] [#/volume] in 0 07:47</td><td> [facility] Blood by k/mm3 Platelet Count Health Care Automated count </td><td> [employer] 172
(160-410) k/mm3 </td> Monocytes/Leuko 9.9 % 0.0-11 <td> 12/22/2018 [facility] cytes [Pure .0 % 17:04</td><td> County number Monocytes. Health Care fraction] in </td><td> [facility] Blood by Automated count 9.9
(0.0-11.0) % </td> Lymphocytes 36.6 % 17.0-5 <td> 12/22/2018 [place] [#/volume] in 0.0 % 17:04</td><td> [facility] Blood by Lymphocytes [facility] Automated count </td><td> [employer] 36.6
(17.0-50.0) % </td> Basophils 0.4 % 0.0-2. <td> 12/22/2018 [place] [#/volume] in 0 % 17:04</td><td> [facility] Blood by Basophils [facility] Automated count </td><td> Corporation 0.4
(0.0-2.0) % </td> Basophils+Eosin 1.6 % 0.0-5. <td> 12/22/2018 [facility] ophils+Monocyte 0 % 17:04</td><td> [facility] s [#/volume] in Eosinophils [facility] Blood by </td><td> [employer] Automated count 1.6
(0.0-5.0) % </td> Immature 0.1 % 0.0-0. <td> 12/22/2018 [place] granulocytes/10 5 % 17:04</td><td> [facility] 0 leukocytes in IG% </td><td> [facility] Blood by [employer] Automated count 0.1
(0.0-0.5) %
The IG fraction represents metamyelocytes, myelocytes and/or
promyelocytes and is only reported as part of the automated
differential when found at a percentage of less than 6.
If higher than 6%, a manual differential will be performed.

(0.0-0.5) % </td> Neutrophils [#] 51.4 % 40.0-7 <td> 12/22/2018 [facility] in Body fluid 6.0 % 17:04</td><td> [facility] by Manual count Neutrophils [facility] </td><td> [employer] 51.4
(40.0-76.0) % </td> Sodium 139 mEq/L 135-14 <td> 12/23/2018 [place] [Moles/volume] 5 07:47</td><td> [facility] in Serum or mEq/L Sodium-Serum [facility] Plasma </td><td> [employer] 139
(135-145) mEq/L </td> Glucose 80 mg/dL 70-105 <td> 12/23/2018 [place] [Mass/volume] mg/dL 07:47</td><td> County in Blood Glucose-Serum Health Care </td><td> [employer] 80
(70-105) mg/dL </td> Potassium 4.3 mEq/L 3.5-5. <td> 12/23/2018 [place] [Moles/volume] 1 07:47</td><td> County in Serum or mEq/L Potassium-Serum Health Care Plasma </td><td> [employer] 4.3
(3.5-5.1) mEq/L </td> Urea nitrogen 16 mg/dL 6-22 <td> 12/23/2018 [facility] r [Mass/volume] mg/dL 07:47</td><td> [facility] in Blood BUN </td><td> Health Care Corporation 16
(6-22) mg/dL </td> Carbon dioxide, 27 mEq/L 22-30 <td> 12/23/2018 [facility] total mEq/L 07:47</td><td> [facility] [Moles/volume] CO2 </td><td> Health Car e in Serum or Corporation Plasma 27
(22-30) mEq/L </td> Chloride 104 mEq/L 98-107 <td> 12/23/2018 [place] [Moles/volume] mEq/L 07:47</td><td> County in Serum or Chloride Health Care Plasma </td><td> [employer] 104
(98-107) mEq/L </td> Aspartate 20 U/L 4-35 <td> 12/23/2018 [place] aminotransferas U/L 07:47</td><td> County e [Enzymatic AST (SGOT) Health Care activity/volume </td><td> [employer] ] in Serum or Plasma 20
(4-35) U/L </td> Creatinine 0.73 mg/dL 0.57-1 <td> 12/23/2018 [place] [Moles/volume] .11 07:47</td><td> County in Serum or mg/dL Creatinine. Health Care Plasma </td><td> [employer] 0.73
(0.57-1.11) mg/dL </td> Alanine 16 U/L 6-55 <td> 12/23/2018 [place] aminotransferas U/L 07:47</td><td> County e [Enzymatic ALT (SGPT) Health Care activity/volume </td><td> [employer] ] in Serum or Plasma 16
(6-55) U/L </td> Bilirubin.total 0.4 mg/dL 0.2-1. <td> 12/23/2018 [facility] [Mass/volume] 3 07:47</td><td> County in Blood mg/dL Bilirubin - [facility] </td><td> 0.4
(0.2-1.3) mg/dL </td> Calcium 10.0 mg/dL 8.6-10 <td> 12/23/2018 [place] [Mass/volume] .2 07:47</td><td> [place] in Blood mg/dL Calcium [facility] Care </td><td> [employer] 10.0
(8.6-10.2) mg/dL </td> Albumin 4.2 g/dL 3.4-4. <td> 12/23/2018 [place] [Mass/volume] 8 g/dL 07:47</td><td> County in Serum or Albumin Health Care Plasma </td><td> [employer] 4.2
(3.4-4.8) g/dL </td> Anion gap in 8 mEq/L 7-13 <td> 12/23/2018 [place] Serum or Plasma mEq/L 07:47</td><td> County Anion Gap Health Care </td><td> [employer] 8
(7-13) mEq/L </td> Proteins - 8.0 g/dL 6.4-8. <td> 12/23/2018 [place] Total 3 g/dL 07:47</td><td> [facility] Proteins - Health [place] </td><td> 8.0
(6.4-8.3) g/dL </td> Lipemic index No Lipemia <td> 12/23/2018 [facility] er of Serum or 07:47</td><td> [facility] Plasma Lipemia Index Health Care </td><td> [facility] No Lipemia
</td> Icteric index Slightly <td> 12/23/2018 [facility] r of Serum or 07:47</td><td> [facility] Plasma Icteric Index Health Care </td><td> [facility] Slightly
</td> Globulin 3.8 gm/dL 2.9-4. <td> 12/23/2018 [place] [Mass/volume] 0 07:47</td><td> [facility] in Serum gm/dL Globulin Health Care </td><td> [facility] 3.8
(2.9-4.0) gm/dL </td> Hemolysis index No <td> 12/23/2018 [facility] of Serum or Hemolysis 07:47</td><td> [facility] Plasma Hemolysis Index Health Care </td><td> [facility] No Hemolysis
</td> Prothrombin 10.0 secs 9.8-12 <td> 12/23/2018 [place] time (PT) .0 07:47</td><td> [facility] secs Prothrombin Health Care Time. [facility] </td><td> 10.0
(9.8-12.0) secs </td> Phosphate 3.8 mg/dL 2.3-4. <td> 12/23/2018 [place] [Mass/volume] 7 07:47</td><td> [facility] in Serum or mg/dL Inorganic Health Care Plasma Phosphorus [facility] </td><td> 3.8
(2.3-4.7) mg/dL </td> Appearance of Slightly-C <td> 12/22/2018 [facility] er Urine loudy 18:16</td><td> County Appearance Health Care </td><td> [facility] Slightly-Cloudy
(CLEAR) </td> aPTT panel - 24.8 secs 25.0-3 <td> 12/23/2018 [place] Platelet poor 2.0 07:47</td><td> [facility] plasma secs Partial Health Care Thromb[employer]in Corporation Time </td><td><artie raph styleCode="Bold "> 24.8 L </paragraph>
(25.0-32.0) secs </td> Glucose Negative <td> 12/22/2018 [place] [Presence] in 18:16</td><td> [facility] Urine by Test Glucose_ Health Care strip </td><td> Corporation Negative
(NEGATIVE) </td> Urobilinogen 0.2 mg/dL 0.0-2. <td> 12/22/2018 [place] [Presence] in 0 18:16</td><td> [facility] Urine by mg/dL Urobilinogen Health Care Automated test </td><td> Corporation strip 0.2
(0.0-2.0) mg/dL </td> Protein Negative <td> 12/22/2018 [place] [Presence] in 18:16</td><td> [facility] Urine by Protein Health Care Automated test [employer] strip </td><td> Negative
(NEGATIVE) </td> Specific 1.006 {} 1.000- <td> 12/22/2018 [place] gravity of 1.035 18:16</td><td> [facility] Urine by Test Specific Health Care strip [employer] </td><td> 1.006
(1.000-1.035) </td> Nitrite Negative <td> 12/22/2018 [place] [Presence] in 18:16</td><td> [facility] Urine by Test Nitrites Health Care strip </td><td> Corporation Negative
(NEGATIVE) </td> Leukocytes 2 /HPF 0-5 <td> 12/22/2018 [place] [Presence] in /HPF 18:16</td><td> [facility] Urine by WBC </td><td> Health Care Automated Corporation 2
(0-5) /HPF </td> Leukocyte 1+ <td> 12/22/2018 [place] esterase 18:16</td><td> [facility] [Presence] in Leukocytes Health Care Urine by Test Esterase [employer] strip </td><td><artie raph styleCode="Bold "> 1+ * AB </paragraph>
(NEGATIVE) </td> Erythrocytes <1 <td> 12/22/2018 [place] [#/area] in 18:16</td><td> [facility] Urine sediment RBC </td><td> Health Car e by Automated [employer] count <1
(0-2) /HPF </td> Bacteria RARE <td> 12/22/2018 [place] [#/area] in 18:16</td><td> [facility] Urine sediment Bacteria Health Care by Microscopy </td><td> [employer] high power field RARE
(NONE SEEN) /HPF </td> Magnesium 2.2 mg/dL 1.6-2. <td> 12/23/2018 [place] [Mass/volume] 6 07:47</td><td> County in Serum or mg/dL Magnesium Level Health Care Plasma </td><td> [employer] 2.2
(1.6-2.6) mg/dL </td> Bacteria NONE SEEN <td> 12/22/2018 [place] [#/area] in FEW 18:16</td><td> [facility] Urine sediment Epithelial Health Care by Microscopy Cells [employer] high power </td><td> field NONE SEEN
FEW

/LPF </td> Erythrocyte 100.0 fL 81.0-9 <td> 12/23/2018 [place] mean 9.0 fL 07:47</td><td> [facility] corpuscular [employer] Health Care volume [Entitic </td><td><[employer]ie Corporat ion volume] by raph Automated count styleCode="Bold "> 100.0 H </paragraph>
(81.0-99.0) fL </td> Hematocrit 41.1 % 37.0-4 <td> 12/23/2018 [place] [Volume 7.0 % 07:47</td><td> [place] Fraction] of HCT </td><td> Health Care Blood by [employer] Automated count 41.1
(37.0-47.0) % </td> Hemoglobin 13.1 g/dL 12.0-1 <td> 12/23/2018 [place] [Mass/volume] 6.0 07:47</td><td> [facility] in Blood g/dL HGB </td><td> Health Care [employer] 13.1
(12.0-16.0) g/dL </td> Erythrocytes 4.11 m/mm3 3.90-5 <td> 12/23/2018 [facility] r [#/volume] in .20 07:47</td><td> [facility] [facility] Blood m/mm3 RBC </td><td> [facility] Care [employer] 4.11
(3.90-5.20) m/mm3 </td> Leukocytes 5.9 k/mm3 4.8-10 <td> 12/23/2018 [place] [#/volume] in .8 07:47</td><td> [facility] Blood by k/mm3 WBC </td><td> [facility] Care Automated count [employer] 5.9
(4.8-10.8) k/mm3 </td> Platelets 172 k/mm3 160-41 <td> 12/23/2018 [place] [#/volume] in 0 07:47</td><td> [facility] Blood by k/mm3 Platelet Count [facility] Care Automated count </td><td> [employer] 172
(160-410) k/mm3 </td> Platelet mean 12.9 fL 9.8-12 <td> 12/23/2018 [facility] r volume [Entitic .8 fL 07:47</td><td> County volume] in MPV [facility] Blood by </td><td><artie [employer] Automated count raph styleCode="Bold "> 12.9 H </paragraph>
(9.8-12.8) fL </td> Erythrocyte 12.0 % 11.5-1 <td> 12/23/2018 [place] distribution 4.5 % 07:47</td><td> County width [Entitic RDW </td><td> Health Car e volume] by [employer] Automated count 12.0
(11.5-14.5) % </td> Erythrocyte 31.9 % 32.0-3 <td> 12/23/2018 [place] mean 6.0 % 07:47</td><td> [facility] hemoglobin </td><td><artie [employer] concentration raph [Mass/volume] styleCode="Bold in Blood from "> Fetus by 31.9 Automated count L </paragraph>
(32.0-36.0) % </td> Erythrocyte 31.9 pg 27.0-3 <td> 12/23/2018 [place] mean 1.5 pg 07:47</td><td> [facility] corpuscular [facility] Health Care hemoglobin </td><td><artie [employer] [Entitic mass] raph by Automated styleCode="Bold count "> 31.9 H </paragraph>
(27.0-31.5) pg </td> Basophils 0.4 % 0.0-2. <td> 12/22/2018 [place] [#/volume] in 0 % 17:04</td><td> [facility] Blood by Basophils [facility] Automated count </td><td> [employer] 0.4
(0.0-2.0) % </td> Basophils+Eosin 1.6 % 0.0-5. <td> 12/22/2018 [facility] ophils+Monocyte 0 % 17:04</td><td> County s [#/volume] in Eosinophils Health [facility] Blood by </td><td> [employer] Automated count 1.6
(0.0-5.0) % </td> Monocytes/Leuko 9.9 % 0.0-11 <td> 12/22/2018 [facility] cytes [Pure .0 % 17:04</td><td> County number Monocytes. Health Care fraction] in </td><td> [facility] Blood by Automated count 9.9
(0.0-11.0) % </td> Lymphocytes 36.6 % 17.0-5 <td> 12/22/2018 [place] [#/volume] in 0.0 % 17:04</td><td> [facility] Blood by Lymphocytes Health Care Automated count </td><td> [employer] 36.6
(17.0-50.0) % </td> Potassium 4.3 mEq/L 3.5-5. <td> 12/23/2018 [place] [Moles/volume] 1 07:47</td><td> County in Serum or mEq/L Potassium-Serum [facility] Plasma </td><td> [employer] 4.3
(3.5-5.1) mEq/L </td> Sodium 139 mEq/L 135-14 <td> 12/23/2018 [place] [Moles/volume] 5 07:47</td><td> [facility] in Serum or mEq/L Sodium-Serum [facility] Plasma </td><td> [employer] 139
(135-145) mEq/L </td> Glucose 80 mg/dL 70-105 <td> 12/23/2018 [place] [Mass/volume] mg/dL 07:47</td><td> [facility] in Blood Glucose-Serum [facility] </td><td> [facility] 80
(70-105) mg/dL </td> Neutrophils [#] 51.4 % 40.0-7 <td> 12/22/2018 [facility] in Body fluid 6.0 % 17:04</td><td> [facility] by Manual count Neutrophils [facility] </td><td> [employer] 51.4
(40.0-76.0) % </td> Immature 0.1 % 0.0-0. <td> 12/22/2018 [place] granulocytes/10 5 % 17:04</td><td> [facility] 0 leukocytes in IG% </td><td> [facility] Blood by [employer] Automated count 0.1
(0.0-0.5) %
The IG fraction represents metamyelocytes, myelocytes and/or
promyelocytes and is only reported as part of the automated
differential when found at a percentage of less than 6.
If higher than 6%, a manual differential will be performed.

(0.0-0.5) % </td> Aspartate 20 U/L 4-35 <td> 12/23/2018 [place] aminotransferas U/L 07:47</td><td> County e [Enzymatic AST (SGOT) Health Care activity/volume </td><td> Corporation ] in Serum or Plasma 20
(4-35) U/L </td> Creatinine 0.73 mg/dL 0.57-1 <td> 12/23/2018 [place] [Moles/volume] .11 07:47</td><td> County in Serum or mg/dL Creatinine. Health Care Plasma </td><td> [employer] 0.73
(0.57-1.11) mg/dL </td> Urea nitrogen 16 mg/dL 6-22 <td> 12/23/2018 [facility] r [Mass/volume] mg/dL 07:47</td><td> [place] in Blood BUN </td><td> [facility] 16
(6-22) mg/dL </td> Carbon dioxide, 27 mEq/L 22-30 <td> 12/23/2018 [facility] total mEq/L 07:47</td><td> County [Moles/volume] CO2 </td><td> Health Car e in Serum or Corporation Plasma 27
(22-30) mEq/L </td> Chloride 104 mEq/L 98-107 <td> 12/23/2018 [place] [Moles/volume] mEq/L 07:47</td><td> County in Serum or Chloride Health Care Plasma </td><td> [employer] 104
(98-107) mEq/L </td> Calcium 10.0 mg/dL 8.6-10 <td> 12/23/2018 [place] [Mass/volume] .2 07:47</td><td> [place] in Blood mg/dL Calcium Health Care </td><td> [employer] 10.0
(8.6-10.2) mg/dL </td> Albumin 4.2 g/dL 3.4-4. <td> 12/23/2018 [place] [Mass/volume] 8 g/dL 07:47</td><td> [place] in Serum or Albumin Health Care Plasma </td><td> [employer] 4.2
(3.4-4.8) g/dL </td> Proteins - 8.0 g/dL 6.4-8. <td> 12/23/2018 [place] Total 3 g/dL 07:47</td><td> [facility] Proteins - [facility] Total [employer] </td><td> 8.0
(6.4-8.3) g/dL </td> Bilirubin.total 0.4 mg/dL 0.2-1. <td> 12/23/2018 [facility] [Mass/volume] 3 07:47</td><td> [facility] in Blood mg/dL Bilirubin - [facility] [employer] </td><td> 0.4
(0.2-1.3) mg/dL </td> Alanine 16 U/L 6-55 <td> 12/23/2018 [place] aminotransferas U/L 07:47</td><td> [facility] e [Enzymatic ALT (SGPT) Health [facility] activity/volume </td><td> [employer] ] in Serum or Plasma 16
(6-55) U/L </td> Lipemic index No Lipemia <td> 12/23/2018 [facility] er of Serum or 07:47</td><td> [facility] Plasma Lipemia Index [facility] </td><td> [employer] No Lipemia
</td> Hemolysis index No <td> 12/23/2018 [facility] of Serum or Hemolysis 07:47</td><td> [facility] Plasma Hemolysis Index [facility] </td><td> [employer] No Hemolysis
</td> Globulin 3.8 gm/dL 2.9-4. <td> 12/23/2018 [place] [Mass/volume] 0 07:47</td><td> [facility] in Serum gm/dL Globulin [facility] Care </td><td> [employer] 3.8
(2.9-4.0) gm/dL </td> Anion gap in 8 mEq/L 7-13 <td> 12/23/2018 [place] Serum or Plasma mEq/L 07:47</td><td> [facility] Anion Gap Health Care </td><td> [facility] 8
(7-13) mEq/L </td> Appearance of Slightly-C <td> 12/22/2018 [facility] er Urine loudy 18:16</td><td> [facility] Appearance Health Care </td><td> [facility] Slightly-Cloudy
(CLEAR) </td> aPTT panel - 24.8 secs 25.0-3 <td> 12/23/2018 [place] Platelet poor 2.0 07:47</td><td> [facility] plasma secs Partial Health Care Thromboplastin [facility] Time </td><td><artie raph styleCode="Bold "> 24.8 L </paragraph>
(25.0-32.0) secs </td> Prothrombin 10.0 secs 9.8-12 <td> 12/23/2018 [place] time (PT) .0 07:47</td><td> [facility] secs Prothrombin Health Care Time. [facility] </td><td> 10.0
(9.8-12.0) secs </td> Phosphate 3.8 mg/dL 2.3-4. <td> 12/23/2018 [place] [Mass/volume] 7 07:47</td><td> [facility] in Serum or mg/dL Inorganic Health Care Plasma Phosphorus [facility] </td><td> 3.8
(2.3-4.7) mg/dL </td> Icteric index Slightly <td> 12/23/2018 [facility] r of Serum or 07:47</td><td> [facility] Plasma Icteric Index Health Care </td><td> [facility] Slightly
</td> Nitrite Negative <td> 12/22/2018 [place] [Presence] in 18:16</td><td> [facility] Urine by Test Nitrites Health Care strip </td><td> [employer] Negative
(NEGATIVE) </td> Urobilinogen 0.2 mg/dL 0.0-2. <td> 12/22/2018 [place] [Presence] in 0 18:16</td><td> County Urine by mg/dL Urobilinogen Health Care Automated test </td><td> Corporation strip 0.2
(0.0-2.0) mg/dL </td> Glucose Negative <td> 12/22/2018 [place] [Presence] in 18:16</td><td> [facility] Urine by Test Glucose_ Health Care strip </td><td> Corporation Negative
(NEGATIVE) </td> Protein Negative <td> 12/22/2018 [place] [Presence] in 18:16</td><td> [facility] Urine by Protein Health Care Automated test [employer] strip </td><td> Negative
(NEGATIVE) </td> Specific 1.006 {} 1.000- <td> 12/22/2018 [place] gravity of 1.035 18:16</td><td> [facility] Urine by Test Specific Health Care strip [employer] </td><td> 1.006
(1.000-1.035) </td> Bacteria RARE <td> 12/22/2018 [place] [#/area] in 18:16</td><td> [facility] Urine sediment Bacteria Health Care by Microscopy </td><td> [employer] high power field RARE
(NONE SEEN) /HPF </td> Erythrocytes <1 <td> 12/22/2018 [place] [#/area] in 18:16</td><td> [facility] Urine sediment RBC </td><td> Health Car e by Automated [employer] count <1
(0-2) /HPF </td> Leukocytes 2 /HPF 0-5 <td> 12/22/2018 [place] [Presence] in /HPF 18:16</td><td> [facility] Urine by WBC </td><td> Health Care Automated [employer] 2
(0-5) /HPF </td> Leukocyte 1+ <td> 12/22/2018 [place] esterase 18:16</td><td> County [Presence] in Leukocytes Health Care Urine by Test [employer] strip </td><td><artie raph styleCode="Bold "> 1+ * AB </paragraph>
(NEGATIVE) </td> Magnesium 2.2 mg/dL 1.6-2. <td> 12/23/2018 [place] [Mass/volume] 6 07:47</td><td> [place] in Serum or mg/dL Magnesium Level Health Care Plasma </td><td> [employer] 2.2
(1.6-2.6) mg/dL </td> Bacteria NONE SEEN <td> 12/22/2018 [place] [#/area] in FEW 18:16</td><td> [facility] Urine sediment Epithelial Health Care by Microscopy Cells [employer] high power </td><td> field NONE SEEN
FEW

/LPF </td> Leukocytes 5.9 k/mm3 4.8-10 <td> 12/23/2018 [place] [#/volume] in .8 07:47</td><td> [facility] Blood by k/mm3 WBC </td><td> Health Care Automated count [employer] 5.9
(4.8-10.8) k/mm3 </td> Erythrocyte 100.0 fL 81.0-9 <td> 12/23/2018 [place] mean 9.0 fL 07:47</td><td> [facility] corpuscular [employer] Health Care volume [Entitic </td><td><artie Corporat ion volume] by raph Automated count styleCode="Bold "> 100.0 H </paragraph>
(81.0-99.0) fL </td> Hematocrit 41.1 % 37.0-4 <td> 12/23/2018 [place] [Volume 7.0 % 07:47</td><td> County Fraction] of HCT </td><td> Health Care Blood by [employer] Automated count 41.1
(37.0-47.0) % </td> Hemoglobin 13.1 g/dL 12.0-1 <td> 12/23/2018 [place] [Mass/volume] 6.0 07:47</td><td> [facility] in Blood g/dL HGB </td><td> [facility] 13.1
(12.0-16.0) g/dL </td> Erythrocytes 4.11 m/mm3 3.90-5 <td> 12/23/2018 [facility] r [#/volume] in .20 07:47</td><td> [facility] Blood m/mm3 RBC </td><td> [facility] 4.11
(3.90-5.20) m/mm3 </td> Erythrocyte 12.0 % 11.5-1 <td> 12/23/2018 [place] distribution 4.5 % 07:47</td><td> [facility] width [Entitic RDW </td><td> Health Car e volume] by [employer] Automated count 12.0
(11.5-14.5) % </td> Erythrocyte 31.9 % 32.0-3 <td> 12/23/2018 [place] mean 6.0 % 07:47</td><td> [facility] corpuscular [facility] Health Care hemoglobin </td><td><[employer] concentration raph [Mass/volume] styleCode="Bold in Blood from "> Fetus by 31.9 Automated count L </paragraph>
(32.0-36.0) % </td> Erythrocyte 31.9 pg 27.0-3 <td> 12/23/2018 [place] mean 1.5 pg 07:47</td><td> [facility] corpuscular [facility] Health Care hemoglobin </td><td><[employer] [Entitic mass] raph by Automated styleCode="Bold count "> 31.9 H </paragraph>
(27.0-31.5) pg </td> Lymphocytes 36.6 % 17.0-5 <td> 12/22/2018 [place] [#/volume] in 0.0 % 17:04</td><td> [facility] Blood by Lymphocytes Health Care Automated count </td><td> [employer] 36.6
(17.0-50.0) % </td> Platelets 172 k/mm3 160-41 <td> 12/23/2018 [place] [#/volume] in 0 07:47</td><td> [facility] Blood by k/mm3 Platelet Count Health Care Automated count </td><td> [employer] 172
(160-410) k/mm3 </td> Platelet mean 12.9 fL 9.8-12 <td> 12/23/2018 [facility] r volume [Entitic .8 fL 07:47</td><td> County volume] in MPV Health Care Blood by </td><td><artie [employer] Automated count raph styleCode="Bold "> 12.9 H </paragraph>
(9.8-12.8) fL </td> Basophils 0.4 % 0.0-2. <td> 12/22/2018 [place] [#/volume] in 0 % 17:04</td><td> [facility] Blood by Basophils [facility] Automated count </td><td> [employer] 0.4
(0.0-2.0) % </td> Basophils+Eosin 1.6 % 0.0-5. <td> 12/22/2018 [facility] ophils+Monocyte 0 % 17:04</td><td> County s [#/volume] in Eosinophils Health Care Blood by </td><td> [employer] Automated count 1.6
(0.0-5.0) % </td> Monocytes/Leuko 9.9 % 0.0-11 <td> 12/22/2018 [facility] cytes [Pure .0 % 17:04</td><td> County number Monocytes. Health Care fraction] in </td><td> [employer] Blood by Automated count 9.9
(0.0-11.0) % </td> Potassium 4.3 mEq/L 3.5-5. <td> 12/23/2018 [place] [Moles/volume] 1 07:47</td><td> County in Serum or mEq/L Potassium-Serum Health Care Plasma </td><td> [employer] 4.3
(3.5-5.1) mEq/L </td> Sodium 139 mEq/L 135-14 <td> 12/23/2018 [place] [Moles/volume] 5 07:47</td><td> County in Serum or mEq/L Sodium-Serum Health Care Plasma </td><td> [employer] 139
(135-145) mEq/L </td> Glucose 80 mg/dL 70-105 <td> 12/23/2018 [place] [Mass/volume] mg/dL 07:47</td><td> [facility] in Blood Glucose-Serum Health Care </td><td> [employer] 80
(70-105) mg/dL </td> Neutrophils [#] 51.4 % 40.0-7 <td> 12/22/2018 [facility] in Body fluid 6.0 % 17:04</td><td> [facility] by Manual count Neutrophils Health Care </td><td> [employer] 51.4
(40.0-76.0) % </td> Immature 0.1 % 0.0-0. <td> 12/22/2018 [place] granulocytes/10 5 % 17:04</td><td> [facility] 0 leukocytes in IG% </td><td> Health [facility] re Blood by [employer] Automated count 0.1
(0.0-0.5) %
The IG fraction represents metamyelocytes, myelocytes and/or
promyelocytes and is only reported as part of the automated
differential when found at a percentage of less than 6.
If higher than 6%, a manual differential will be performed.

(0.0-0.5) % </td> Aspartate 20 U/L 4-35 <td> 12/23/2018 [place] aminotransferas U/L 07:47</td><td> County e [Enzymatic AST (SGOT) Health Care activity/volume </td><td> [employer] ] in Serum or Plasma 20
(4-35) U/L </td> Creatinine 0.73 mg/dL 0.57-1 <td> 12/23/2018 [place] [Moles/volume] .11 07:47</td><td> [facility] in Serum or mg/dL Creatinine. Health Care Plasma </td><td> [employer] 0.73
(0.57-1.11) mg/dL </td> Urea nitrogen 16 mg/dL 6-22 <td> 12/23/2018 [facility] r [Mass/volume] mg/dL 07:47</td><td> [place] in Blood BUN </td><td> [facility] 16
(6-22) mg/dL </td> Carbon dioxide, 27 mEq/L 22-30 <td> 12/23/2018 [facility] total mEq/L 07:47</td><td> County [Moles/volume] CO2 </td><td> Health Car e in Serum or Corporation Plasma 27
(22-30) mEq/L </td> Chloride 104 mEq/L 98-107 <td> 12/23/2018 [place] [Moles/volume] mEq/L 07:47</td><td> County in Serum or Chloride Health Care Plasma </td><td> [employer] 104
(98-107) mEq/L </td> Albumin 4.2 g/dL 3.4-4. <td> 12/23/2018 [place] [Mass/volume] 8 g/dL 07:47</td><td> County in Serum or Albumin Health Care Plasma </td><td> [employer] 4.2
(3.4-4.8) g/dL </td> Proteins - 8.0 g/dL 6.4-8. <td> 12/23/2018 [place] Total 3 g/dL 07:47</td><td> [facility] Proteins - [employer] </td><td> 8.0
(6.4-8.3) g/dL </td> Bilirubin.total 0.4 mg/dL 0.2-1. <td> 12/23/2018 [facility] [Mass/volume] 3 07:47</td><td> [place] in Blood mg/dL Bilirubin - [employer] </td><td> 0.4
(0.2-1.3) mg/dL </td> Alanine 16 U/L 6-55 <td> 12/23/2018 [place] aminotransferas U/L 07:47</td><td> County e [Enzymatic ALT (SGPT) Health Care activity/volume </td><td> [facility] ] in Serum or Plasma 16
(6-55) U/L </td> Lipemic index No Lipemia <td> 12/23/2018 [facility] er of Serum or 07:47</td><td> [facility] Plasma Lipemia Index Health Care </td><td> [facility] No Lipemia
</td> Hemolysis index No <td> 12/23/2018 [facility] of Serum or Hemolysis 07:47</td><td> [facility] Plasma Hemolysis Index Health Care </td><td> [facility] No Hemolysis
</td> Globulin 3.8 gm/dL 2.9-4. <td> 12/23/2018 [place] [Mass/volume] 0 07:47</td><td> [facility] in Serum gm/dL Globulin Health [facility] </td><td> [facility] 3.8
(2.9-4.0) gm/dL </td> Anion gap in 8 mEq/L 7-13 <td> 12/23/2018 [place] Serum or Plasma mEq/L 07:47</td><td> [facility] Anion Gap [facility] Care </td><td> [facility] 8
(7-13) mEq/L </td> Calcium 10.0 mg/dL 8.6-10 <td> 12/23/2018 [place] [Mass/volume] .2 07:47</td><td> [facility] in Blood mg/dL Calcium Health Care </td><td> [facility] 10.0
(8.6-10.2) mg/dL </td> aPTT panel - 24.8 secs 25.0-3 <td> 12/23/2018 [place] Platelet poor 2.0 07:47</td><td> [facility] plasma secs Partial [facility] Care Thromboplastin [facility] Time </td><td><artie raph styleCode="Bold "> 24.8 L </paragraph>
(25.0-32.0) secs </td> Prothrombin 10.0 secs 9.8-12 <td> 12/23/2018 [place] time (PT) .0 07:47</td><td> County secs Prothrombin Health Care Time. [employer] </td><td> 10.0
(9.8-12.0) secs </td> Phosphate 3.8 mg/dL 2.3-4. <td> 12/23/2018 [place] [Mass/volume] 7 07:47</td><td> [facility] in Serum or mg/dL Inorganic Health Care Plasma Phosphorus [employer] </td><td> 3.8
(2.3-4.7) mg/dL </td> Icteric index Slightly <td> 12/23/2018 [facility] r of Serum or 07:47</td><td> [facility] Plasma Icteric Index Health Care </td><td> [employer] Slightly
</td> Glucose Negative <td> 12/22/2018 [place] [Presence] in 18:16</td><td> [facility] Urine by Test Glucose_ Health Care strip </td><td> [employer] Negative
(NEGATIVE) </td> Protein Negative <td> 12/22/2018 [place] [Presence] in 18:16</td><td> [facility] Urine by Protein Health Care Automated test [employer] strip </td><td> Negative
(NEGATIVE) </td> Specific 1.006 {} 1.000- <td> 12/22/2018 [place] gravity of 1.035 18:16</td><td> [facility] Urine by Test Specific Health Care strip [employer] </td><td> 1.006
(1.000-1.035) </td> Appearance of Slightly-C <td> 12/22/2018 [facility] er Urine loudy 18:16</td><td> [facility] Appearance Health Care </td><td> [employer] Slightly-Cloudy
(CLEAR) </td> Leukocytes 2 /HPF 0-5 <td> 12/22/2018 [place] [Presence] in /HPF 18:16</td><td> [facility] Urine by WBC </td><td> Health Care Automated [employer] 2
(0-5) /HPF </td> Leukocyte 1+ <td> 12/22/2018 [place] esterase 18:16</td><td> [facility] [Presence] in Leukocytes Health Care Urine by Test [employer] strip </td><td><artie raph styleCode="Bold "> 1+ * AB </paragraph>
(NEGATIVE) </td> Nitrite Negative <td> 12/22/2018 [place] [Presence] in 18:16</td><td> [facility] Urine by Test Nitrites Health Care strip </td><td> Corporation Negative
(NEGATIVE) </td> Urobilinogen 0.2 mg/dL 0.0-2. <td> 12/22/2018 [place] [Presence] in 0 18:16</td><td> [facility] Urine by mg/dL Urobilinogen [facility] Automated test </td><td> Corporation strip 0.2
(0.0-2.0) mg/dL </td> Magnesium 2.2 mg/dL 1.6-2. <td> 12/23/2018 [place] [Mass/volume] 6 07:47</td><td> County in Serum or mg/dL Magnesium Level [facility] Care Plasma </td><td> [employer] 2.2
(1.6-2.6) mg/dL </td> Bacteria NONE SEEN <td> 12/22/2018 [place] [#/area] in FEW 18:16</td><td> [facility] Urine sediment Epithelial Health Care by Microscopy Cells [employer] high power </td><td> field NONE SEEN
FEW

/LPF </td> Bacteria RARE <td> 12/22/2018 [place] [#/area] in 18:16</td><td> [facility] Urine sediment Bacteria Health Care by Microscopy </td><td> [employer] high power field RARE
(NONE SEEN) /HPF </td> Erythrocytes <1 <td> 12/22/2018 [place] [#/area] in 18:16</td><td> [facility] Urine sediment RBC </td><td> Health Car e by [employer] count <1
(0-2) /HPF </td> Procedure Social History Code Duration Value Status Description Data Source(s ) Smoking Unknown if ever completed Unknown if ever eCW2 ([facility]) Smoking Unknown if ever completed Unknown if ever eCW2 ([facility] smoked smoked [facility]) Smoking Unknown if ever completed Unknown if ever eCW2 ([facility] smoked smoked [facility]) Smoking Unknown if ever completed Unknown if ever eCW2 ([facility] smoked smoked [facility]) Smoking Unknown if ever completed Unknown if ever eCW2 ([facility] smoked smoked [facility]) Smoking Unknown if ever completed Unknown if ever eCW2 ([facility] smoked smoked [facility]) Smoking Unknown if ever completed Unknown if ever eCW2 ([facility] smoked smoked [facility]) Smoking Unknown if ever completed Unknown if ever eCW2 ([facility] smoked smoked [facility]) Smoking Unknown if ever completed Unknown if ever eCW2 ([facility] smoked smoked [facility]) Smoking Unknown if ever completed Unknown if ever eCW2 ([facility] smoked smoked [facility]) Smoking Unknown if ever completed Unknown if ever eCW2 ([facility] smoked smoked [facility]) Smoking Unknown if ever completed Unknown if ever eCW2 ([facility] smoked smoked [facility]) Smoking Unknown if ever completed Unknown if ever [facility] smoked smoked [employer] Smoking Unknown if ever completed Unknown if ever eCW2 ([facility] smoked smoked [facility]) Smoking Unknown if ever completed Unknown if ever eCW2 ([facility] smoked smoked [facility]) Smoking Unknown if ever completed Unknown if ever eCW2 ([facility] smoked smoked [facility]) Smoking Unknown if ever completed Unknown if ever eCW2 ([facility] smoked smoked [facility]) Vital Signs ID Date Data Source UNK Name Value Range Interpretation Code Description Data Source(s) Diastolic blood mm[Hg] eCW2 ([facility]) Systolic blood mm[Hg] eCW2 ([facility] pressure [facility]) Diastolic blood mm[Hg] eCW2 ([facility] pressure [facility]) Systolic blood mm[Hg] eCW2 ([facility] pressure [facility]) Diastolic blood 66 {} Normal (applies to 66 {} [place] pressure non-numeric results) Coun [facility] on Systolic blood 111 {} Normal (applies to 111 {} [place] pressure non-numeric results) Coun ty [facility] on First Respiration 17.0000 {} Normal (applies to 17.0000 {} [place] rate Set non-numeric results) Coun ty [facility] Corpor[facility] on Heart rate 73.0000 {} Normal (applies to 73.0000 {} [place] non-numeric results) Coun ty [facility] Corpor[facility] on Body temperature 97.1000 {} Normal (applies to 97.1000 {} [place] non-numeric results) Coun ty [facility] Corpor[facility] on Diastolic blood 63 {} Normal (applies to 63 {} [place] pressure non-numeric results) Coun ty [facility] Corpor[facility] on Systolic blood 128 {} Normal (applies to 128 {} [place] pressure non-numeric results) [facility] First Respiration 15.0000 {} Normal (applies to 15.0000 {} [place] rate Set non-numeric results) [facility] Heart rate 71.0000 {} Normal (applies to 71.0000 {} [place] [facility] non-numeric results) [facility] Body temperature 97.0000 {} Normal (applies to 97.0000 {} [place] non-numeric results) [facility] wt - obtain Normal (applies to {} [facility] [place] non-numeric results) [facility] weight - kg 61.0000 {} Normal (applies to 61.0000 {} [facility] non-numeric results) [facility] Diastolic blood 70 mm[Hg] 70 mm[Hg] eCW2 ([facility]) Systolic blood 135 mm[Hg] 135 mm[Hg] eCW2 ([facility]) Diastolic blood 68 mm[Hg] 68 mm[Hg] eCW2 ([facility]) Systolic blood 141 mm[Hg] 141 mm[Hg] eCW2 ([facility]) Diastolic blood 80 mm[Hg] 80 mm[Hg] eCW2 ([facility]) Systolic blood 160 mm[Hg] 160 mm[Hg] eCW2 ([facility]) Diastolic blood 60 mm[Hg] 60 mm[Hg] eCW2 ([facility]) Systolic blood 120 mm[Hg] 120 mm[Hg] eCW2 ([facility]) Diastolic blood 60 mm[Hg] 60 mm[Hg] eCW2 ([facility]) Systolic blood 120 mm[Hg] 120 mm[Hg] eCW2 ([facility]) Diastolic blood 65 mm[Hg] 65 mm[Hg] eCW2 ([facility]) Systolic blood 130 mm[Hg] 130 mm[Hg] eCW2 ([facility]) Diastolic blood mm[Hg] eCW2 ([facility]) Systolic blood mm[Hg] eCW2 ([facility]) Diastolic blood mm[Hg] eCW2 ([facility]) Systolic blood mm[Hg] eCW2 ([facility]) Diastolic blood mm[Hg] eCW2 ([facility]) Systolic blood mm[Hg] eCW2 ([facility]) Diastolic blood 65 mm[Hg] 65 mm[Hg] eCW2 ([facility]) Systolic blood 140 mm[Hg] 140 mm[Hg] eCW2 ([facility])
[2020-07-31 13:04] VITALS: BMI 21.6
--- OUTSIDE RECORDS SUMMARY | 2020-08-05 10:20 | XMS ---
:1945 Author Organization [facility] Support Name Relationship Address Phone NUVIA MEDINA FAMILY/[place] [address] RE Unavailable Unavailable Unavailable NUVIA ECHEVERRIA FAMILY/[place] [address] DAVID GRACIA DAUGHTER [place] [address] DAVID GRACIA Unavailable [address] [place] [address] Re-disclosure Warning The records that you are [...] is protected by Article 27-F of the [facility] Public Health law. If you continue you may haveaccess to information: Regarding HIV / AIDS; Provided by facilities licensed or operated by the [facility] Office of Mental Health; or Provided by the [facility] Office for People With Developmental Disabilities. If such information is present, then the following [facility] mandated warning applies: This information has been [...] law may result in a fine or group home sentence or both. A general authorization for the release of medical or other information is NOT sufficient authorization for further disclosure. Encounters Encounter Providers Location Date Indications Data Source(s ) [place] [facility] [place] 04[facility] eCW 2 [facility] [facility] [place] [place] [facility] [place] [facility] 12/19/2019 eCW 2 [facility] [facility] [place] [facility] [place] [facility] 08/24/2019 eCW 2 ([facility] [facility] [place] [place] [facility] [place] [facility] 08/20/2019 eCW 2 ([facility] [facility] [place] [place] [facility] [place] [facility] 08/10/2019 eCW 2 ([facility] [facility] [place] [place] [facility] [place] [facility] 07/23/2019 eCW 2 ([facility] [facility] [place] [place] [facility] [place] [facility] 06/26/2019 eCW 2 ([facility] [facility] [place] Insurance Providers Payer name Policy type Policy ID Covered Covered democrat's Policy P hansa / Coverage democrat ID relationship to [place] [employer] ormation type [place] H[employer] MEDICARE [id number] VIP 1 Dental [id number] S [id number] [employer] Essential Plan 3 Affinity [id number] S [id number] Medicare Essential Passport HMO Results ID Date Data Source [id number] 08/01/2020 11:00:00 AM EDT [facility] Name Value Range Interpretation Description Data Sup porting Code Source(s) Document(s ) SARS [facility] coronavirus 2 RNA This lab was ordered by AJ WALKER and reported by [facility]. Procedure
[2020-08-05] MEDS ORDERED: OFLOXACIN 0.3% OPHTHALMIC SOLUTION 5 ML BOTTLE ONE (10:50)
[2020-08-05] MEDS ORDERED: CYCLOPENTOLATE HCL 1% OPHTH SOLN 2 ML BOTTLE ONE (10:50)
[2020-08-05] MEDS ORDERED: TROPICAMIDE 1% OPHTH SOLN 15 ML BOTTLE ONE (10:50)
[2020-08-05] MEDS ORDERED: KETOROLAC TROMETHAMINE 0.5% EYE DROP 1 DROP DROPS ONE (10:50)
[2020-08-05] MEDS ORDERED: PHENYLEPHRINE 2.5% OPHTH SOLN 15 ML BOTTLE ONE (10:50)
[2020-08-05] MEDS: CYCLOPENTOLATE HCL 1% OPHTH SOLN 2 ML BOTTLE OS SCH ×5 (11:05→11:25)
[2020-08-05] MEDS: TROPICAMIDE 1% OPHTH SOLN 15 ML BOTTLE OS SCH ×5 (11:10→11:30)
[2020-08-05] MEDS: KETOROLAC TROMETHAMINE 0.5% EYE DROP 1 DROP DROPS OS SCH ×5 (11:10→11:30)
[2020-08-05] MEDS: PHENYLEPHRINE 2.5% OPHTH SOLN 15 ML BOTTLE OS SCH ×5 (11:10→11:30)
[2020-08-05] MEDS: OFLOXACIN 0.3% OPHTHALMIC SOLUTION 5 ML BOTTLE OS SCH ×5 (11:10→11:30)
[2020-08-05] MEDS ORDERED: MIDAZOLAM HCL 2 MG/2 ML SINGLE DOSE VIAL ONE (12:57)
--- NOTE | 2020-08-05 14:01 | OP ---
DATE OF OPERATION: 08/05/2020 AGE: [id number] years old. PREOPERATIVE DIAGNOSIS: Cataract, left eye. POSTOPERATIVE DIAGNOSIS: Cataract, left eye. PROCEDURE: Cataract extraction via phacoemulsification with insertion of posterior chamber lens implant, left eye. SURGEON: Doug Lund MD LEARNING SUPPORT TEACHER: Jennifer Elise MD ANESTHESIA: Topical with sedation. ESTIMATED BLOOD LOSS: Less than 1 mL. COMPLICATIONS: None. SPECIMENS: None. DESCRIPTION OF PROCEDURE: The patient was identified in the holding area. After all risks, benefits, and alternatives were explained to the patient, informed consent was obtained. The left eye was marked with a marking pen. The patient then entered the operating room on an eye stretcher. After a formal timeout was performed, topical tetracaine eye drops were instilled onto the left eye. Left eye was then prepped and draped in the usual sterile fashion. An eyelid speculum was placed beneath the eyelids of the left eye. An inferotemporal paracentesis incision was created using a 15-degree blade. Topical preservative-free epinephrine and preservative-free lidocaine were then injected into the anterior chamber. Viscoelastic was then injected into the anterior chamber. A 2.4-mm keratome blade was then used to make a superotemporal incision. A 360-degree, continuous curvilinear capsulorrhexis was then created using bent cystotome and Utrata forceps. Hydrodissection was performed using balanced saline solution on a cannula. Phacoemulsification was introduced to disassemble and remove the nucleus in its entirety. Irrigation/aspiration was then used to remove any remaining cortical material from the eye. The capsular bag was reformed using viscoelastic. An Ronni model [id number] with a power of 18.0 diopters, serial number [id number] was inspected, found to be defect free, and injected into the capsular bag. Irrigation/aspiration was then used to remove any remaining viscoelastic from the eye. All wounds were hydrated with balanced saline solution, noted to be watertight. There was a red reflex present. The anterior chamber was deep. The lens was perfectly centered in the capsular bag, and the eye had an adequate pressure. Topical antibiotic eye drops and ointment were then administered to the left eye. The eyelid speculum was removed from the left eye. Left eye was shielded. Patient tolerated the procedure well, left the operating room in stable condition to follow up in the eye clinic tomorrow morning at 10:00. DOUG LUND M.D. JUDITH/[id number]
[2020-08-05 14:21] VITALS: TEMP 97.4
[2020-08-05 14:25] VITALS: BP 116/55; PULSE 65
== END 2020-08-05 14:15 | disposition home or self-care (01) ==
LOC: FASU 10:16
PROVIDERS: ATTEND Ophthalmology
PROC: 08RK3JZ Replacement of Left Lens with Synthetic Substitute, Percutaneous Approach (ICD-10-PCS; principal; 2020-08-05 13:08)
DX: H26.9 Unspecified cataract (principal)